=== PATIENT | female | born 1990 | race Caucasian/White ===

== ENCOUNTER → 2019-04-11 03:00 | Observation (INO) ==
[2019-04-11 01:32] LABS: Bilirubin,Urine Negative (Negative); Blood,Urine Moderate (Negative); Clarity,Urine Cloudy (Clear); Color,Urine Yellow (Yellow); Glucose,Urine (UA) Normal (Normal); Ketones,Urine Negative (Negative); Leukocyte Esterase,Urine Large (Negative); Nitrite,Urine Negative (Negative); PH,Urine 6.5 pH Units (5.0-8.0); Protein,Urine 30 mg/dL (Neg-Trace); Urobilinogen,Urine Normal (Normal)
[2019-04-11 01:35] LABS: Bacteria,Urine Many per hpf (None-Few); Hyaline Casts,Urine None Seen per lpf (None-Few); Squamous Epithelial Cell,Urine Many per lpf (None-Few); WBC,Urine TNTC per hpf (0-3)
[2019-04-11 01:41] LABS: Amphetamine Screen,Urine Negative ng/mL (Cutoff=1000); Barbiturate Screen,Urine Negative ng/mL (Cutoff=200); Benzodiazepines Screen,Urine Negative ng/mL (Cutoff=200); Cannabinoid Screen,Urine Negative ng/mL (Cutoff = 50); Cocaine Screen,Urine Negative ng/mL (Cutoff= 300); Opiate Screen,Urine Negative ng/mL (Cutoff=300); Phencyclidine Screen,Urine Negative ng/mL (Cutoff=25)
[2019-04-11 03:49] LABS: Trichomonas DNA Not Detected (Not Detect)
[2019-04-11 03:50] LABS: Candida DNA Not Detected (Not Detect); Gardnerella DNA DETECTED (Not Detect)
== END | disposition home or self-care (01) ==
LOC: 1NENULAB
PROVIDERS: ADMIT Advanced Practice Midwife; ATTEND Advanced Practice Midwife

== ENCOUNTER 2019-04-23 10:25 | Inpatient (IN) ==
[2019-04-23 11:31] LABS: Basophils % 0.3 %; Eosinophils % 0.2 %; Hematocrit 31.6 % (35.3-44.9); Hemoglobin 10.6 g/dL (11.5-15.4); Immature Granulocytes % 0.6 % (0-4); Lymphocytes # 1.4 K/mcL (0.6-4.6); Lymphocytes % 12.8 %; Mean Corpuscular HGB Conc 33.5 g/dL (31.6-35.5); Mean Corpuscular Hemoglobin 30.5 pg (28.0-33.3); Mean Corpuscular Volume 90.8 fL (83.0-100.0); Mean Platelet Volume 10.7 fL (9.4-12.4); Monocytes # 0.5 K/mcL (0.0-1.3); Monocytes % 4.8 %; Neutrophils # 8.6 K/mcL (1.6-8.9); Platelet Count 197 K/mcL (140-400); Red Blood Count 3.48 M/mcL (3.82-4.97); Segmented Neutrophils % 81.3 %; White Blood Count 10.5 K/mcL (4.3-11.1)
[2019-04-23 11:40] LABS: Amphetamine Screen,Urine Negative ng/mL (Cutoff=1000); Barbiturate Screen,Urine Negative ng/mL (Cutoff=200); Benzodiazepines Screen,Urine Negative ng/mL (Cutoff=200); Cannabinoid Screen,Urine Negative ng/mL (Cutoff = 50); Cocaine Screen,Urine Negative ng/mL (Cutoff= 300); Creatinine,Urine 63 mg/dL; Opiate Screen,Urine Negative ng/mL (Cutoff=300); Phencyclidine Screen,Urine Negative ng/mL (Cutoff=25); Protein/Creatinine Ratio,Urine 0.89 mg/mg (0.00-0.20)
[2019-04-23] MEDS ORDERED: Ondansetron 4 MG/2 ML VIAL IVP PRN ×2 (11:48→16:48)
[2019-04-23] MEDS ORDERED: *HR* Nalbuphine 10 MG/ML AMPUL IVP PRN (11:48)
[2019-04-23] MEDS ORDERED: Metoclopramide 10 MG/2 ML VIAL IVP PRN (11:48)
[2019-04-23] MEDS ORDERED: Lidocaine 1% 20 ML MDV INFILT PRN (11:48)
[2019-04-23] MEDS ORDERED: Naloxone 0.4 MG/ML INJ IVP PRN ×2 (11:48→16:48)
[2019-04-23 11:51] LABS: Alanine Aminotransferase 9 Units/L (7-52); Aspartate Amino Transferase 12 Units/L (13-39); BUN/Creatinine Ratio 18 (6-26); Blood Urea Nitrogen 9 mg/dL (6-20); Lactate Dehydrogenase 138 Units/L (140-271); Uric Acid 4.7 mg/dL (2.3-7.6); eGFR For African Americans > 60 (> 60); eGFR For Non-African Americans > 60 (> 60)
[2019-04-23] MEDS ORDERED: miSOPROStol 25 MCG TABLET PO PRN (13:11)
[2019-04-23] MEDS ORDERED: Oxytocin 20 units/ LR 1000 mL 20 UNIT/1,000 ML BAG IVC SCH (15:30)
[2019-04-23] MEDS: Ringers Solution, Lactated 1,000 ML IVC SCH ×2 (15:50→23:01)
[2019-04-23] MEDS ORDERED: EPHEDrine 50 MG/ML VIAL IVP PRN (16:48)
[2019-04-23] MEDS ORDERED: *HR* FentaNYL (PF) 100 MCG/2 ML VIAL EP ONE (16:48)
[2019-04-23] MEDS ORDERED: Ropivacaine/PF 0.2% 20 ML VIAL EP ONE (16:48)
[2019-04-23] MEDS: Famotidine 20 MG/2 ML VIAL IVP PRN (23:00)
[2019-04-23] MEDS ORDERED: Famotidine 20 MG/2 ML VIAL IVP ONE (23:04)
[2019-04-24] MEDS: Epidural Premix (fent/bupiv) 110 ML EP SCH ×2 (08:07→13:35)
[2019-04-24] MEDS ORDERED: Epidural Premix (fent/bupiv) 110 ML EP SCH (13:30)
[2019-04-24] MEDS ORDERED: Famotidine 20 MG/2 ML VIAL IVP ONE (14:15)
[2019-04-24] MEDS: Famotidine 20 MG/2 ML VIAL IVP PRN (14:48)
[2019-04-24] MEDS ORDERED: *HR* Labetalol 20 MG/4 ML SYRINGE IVP ONE (21:19)
[2019-04-25] MEDS ORDERED: Benzocaine/Menthol 56 GM AEROSOL SPRAY TP ONE (02:49)
[2019-04-25] MEDS ORDERED: Acetaminophen 325 MG TABLET PO PRN (02:51)
[2019-04-25] MEDS ORDERED: *HR* HYDROcodone/Acet 5/325 mg TABLET PO PRN (02:51)
[2019-04-25] MEDS ORDERED: Benzocaine/Menthol 56 GM AEROSOL SPRAY TP PRN (02:51)
[2019-04-25] MEDS ORDERED: Lanolin 7 G OINT...G. TP PRN (02:51)
[2019-04-25] MEDS: Ibuprofen 600 MG TABLET PO PRN ×3 (03:11→18:03)
[2019-04-25 05:21] LABS: Basophils % 0.1 %; Hematocrit 31.1 % (35.3-44.9); Hemoglobin 10.6 g/dL (11.5-15.4); Immature Granulocytes % 0.8 % (0-4); Lymphocytes # 0.8 K/mcL (0.6-4.6); Lymphocytes % 3.6 %; Mean Corpuscular HGB Conc 34.1 g/dL (31.6-35.5); Mean Corpuscular Hemoglobin 30.6 pg (28.0-33.3); Mean Corpuscular Volume 89.9 fL (83.0-100.0); Mean Platelet Volume 10.8 fL (9.4-12.4); Monocytes % 4.3 %; Platelet Count 173 K/mcL (140-400); Red Blood Count 3.46 M/mcL (3.82-4.97); Red Cell Distribution Width 12.1 % (11.5-14.5); Segmented Neutrophils % 91.2 %
[2019-04-25 05:22] LABS: Neutrophils # 20.1 K/mcL (1.6-8.9)
[2019-04-25] MEDS ORDERED: Prenatal Vit/FA 1 EACH TABLET PO SCH (09:00)
[2019-04-25] MEDS: Oxytocin 20 units/ LR 1000 mL 20 UNIT/1,000 ML BAG IVC SCH (15:06)
[2019-04-25] MEDS: Ringers Solution, Lactated 1,000 ML IVC SCH ×2 (15:06→15:07)
[2019-04-26 07:52] VITALS: BP 121/71
== END 2019-04-26 11:01 | disposition home or self-care (01) | DRG 806 ==
LOC: 1NENULAB → OBSVTOIN 10:25 → 1NENULAB 18:03 → 1NENUOBS 04-25 02:42
PROVIDERS: ADMIT Obstetrics & Gynecology; ATTEND Obstetrics & Gynecology